=== PATIENT | female | born 1935 | race Caucasian/White ===

== ENCOUNTER 2024-01-01 20:25 | Emergency (ER) | payer MEDICARE, BC | END 2024-01-01 22:10 | disposition home or self-care (01) | LOC: KA.ED 20:25 | DX: S42.032A Displaced fracture of lateral end of left clavicle, initial encounter for closed fracture (principal); E03.9 Hypothyroidism, unspecified; Z79.890 Hormone replacement therapy; Z79.899 Other long term (current) drug therapy; W19.XXXA Unspecified fall, initial encounter | CPT/HCPCS: 71101-LT; 73030-LT; 99283 ==